=== PATIENT | female | born 1995 | race Caucasian/White ===

== ENCOUNTER 2018-03-11 17:09 | Inpatient (IN) | payer OTHER ==
[2018-03-11] MEDS: miSOPROStol 50 MCG 1/2 TAB (S0191) PO ×2 (01:45→21:37)
[2018-03-11 20:07] LABS: HEMATOCRIT 34.2 % (36.0-47.0); MEAN CORPUSCULAR HEMOGLOBIN 26.3 pg (27.0-33.0); MEAN CORPUSCULAR HGB CONC 32.2 g/dl (32.0-36.5); MEAN CORPUSCULAR VOLUME 81.6 fl (80.0-96.0); PLATELET COUNT, AUTOMATED 233 10^3/uL (150-450); RED BLOOD COUNT 4.19 10^6/uL (4.00-5.40); RED CELL DISTRIBUTION WIDTH 18.5 % (11.5-14.5); WHITE BLOOD COUNT 14.9 10^3/uL (4.0-10.0)
[2018-03-11 20:30] LABS: ALT/SGPT 13 U/L (12-78); AST/SGOT 14 U/L (7-37); BILIRUBIN,TOTAL 0.2 MG/DL (0.2-1.0); CREATININE FOR GFR 0.66 MG/DL (0.55-1.30); GLOMERULAR FILTRATION RATE > 60.0 (>60); LDH LACTATE DEHYDROGENASE 186 U/L (84-246); URIC ACID 3.9 MG/DL (2.6-6.0)
[2018-03-11] MEDS ORDERED: AcetaZOLAMIDE 500 MG ER CAP PO (21:00)
[2018-03-11] MEDS ORDERED: zolPIDEM TARTRATE 5 MG TAB PO (21:00)
[2018-03-11 21:15] LABS: TOTAL PROTEIN,RANDOM URINE 41.8 MG/DL (0.0-12.0)
[2018-03-11 21:15] LABS: CREATININE,RANDOM URINE 64.9 MG/DL
[2018-03-12] MEDS: miSOPROStol 50 MCG 1/2 TAB (S0191) PO ×3 (02:45→10:45)
[2018-03-12] MEDS: ACETAMINOPHEN 500 MG TAB PO (05:39)
[2018-03-12] MEDS: CALCIUM CARBONATE 500 MG CHEW U/D PO (05:45)
[2018-03-12] MEDS: LR 1,000 ML IV ×2 (11:37→19:15)
[2018-03-12] MEDS: OXYTOCIN DRIP 30 UNITS in APPROPRIATE DILUENT 1 EA IV (11:38)
[2018-03-12] MEDS ORDERED: hydrALAZINE INJ 20 MG/ML VIAL As Ordered (14:08)
[2018-03-12] MEDS: hydrALAZINE INJ 20 MG/ML VIAL IV (14:13)
[2018-03-12 14:32] LABS: HEMOGLOBIN 10.9 g/dl (12.0-15.5); MEAN CORPUSCULAR HEMOGLOBIN 26.7 pg (27.0-33.0); MEAN CORPUSCULAR VOLUME 80.9 fl (80.0-96.0); PLATELET COUNT, AUTOMATED 213 10^3/uL (150-450); RED BLOOD COUNT 4.08 10^6/uL (4.00-5.40); RED CELL DISTRIBUTION WIDTH 18.8 % (11.5-14.5); WHITE BLOOD COUNT 15.6 10^3/uL (4.0-10.0)
[2018-03-12 14:54] LABS: ALT/SGPT 12 U/L (12-78); AST/SGOT 9 U/L (7-37); BILIRUBIN,TOTAL 0.2 MG/DL (0.2-1.0); GLOMERULAR FILTRATION RATE > 60.0 (>60); LDH LACTATE DEHYDROGENASE 159 U/L (84-246); URIC ACID 3.8 MG/DL (2.6-6.0)
[2018-03-12] MEDS: PENICILLIN G POTASSIUM IV 5 MU in D5W MINI-BAG PLUS 100 ML IV (18:59)
[2018-03-12] MEDS: PENICILLIN G POTASSIUM IV 2.5 MU in APPROPRIATE DILUENT 1 EA IV (23:30)
[2018-03-13] MEDS: LABETALOL HCL 100 MG/20 ML VIAL IV (02:15)
[2018-03-13] MEDS ORDERED: LABETALOL HCL 100 MG/20 ML VIAL As Ordered (02:16)
[2018-03-13] MEDS: LR 1,000 ML IV ×3 (03:15→19:15)
[2018-03-13] MEDS: PENICILLIN G POTASSIUM IV 2.5 MU in APPROPRIATE DILUENT 1 EA IV ×4 (03:30→15:30)
[2018-03-13] MEDS: BUTORPHANOL 2 MG/ML INJ (J0595) IV (05:15)
[2018-03-13] MEDS: PROMETHAZINE INJ 25 MG/ML VIAL (J2550) IV (05:15)
[2018-03-13] MEDS ORDERED: FENTANYL 2MCG/ML ROPIVACAINE 0.2% IN 0.9% NACL 200ML IVBAG As Ordered (07:21)
[2018-03-13] MEDS: MAG Sulf (L&D) 4 GM/100 ML 4 GM in APPROPRIATE DILUENT 1 EA IV (08:28)
[2018-03-13] MEDS: MAG Sulf (OBGYN) 20GM/500ML 20,000 MG in APPROPRIATE DILUENT 1 EA IV ×2 (08:29→19:10)
[2018-03-13] MEDS: FENTANYL/ROPIVACAINE/NACL BAG 200 ML EPIDURAL (08:29)
[2018-03-13] MEDS ORDERED: ONDANSETRON 4MG/2ML VIAL (J2405) IV ×2 (08:30→16:30)
[2018-03-13] MEDS ORDERED: ePHEDrine SULFATE 25 MG/5 ML(5MG/ML) SYRINGE IV (08:30)
[2018-03-13] MEDS ORDERED: diphenhydrAMINE INJ 50MG/ML VIAL (J1200) IV (08:30)
[2018-03-13] MEDS ORDERED: REFRIGERATOR IV KEYS XX (08:30)
[2018-03-13] MEDS ORDERED: NALOXONE INJ 0.4 MG/1 ML VIAL (J2310) IV (08:30)
[2018-03-13] MEDS ORDERED: EPIDURAL/PCA KEYS XX (08:30)
[2018-03-13] MEDS ORDERED: EPIDURAL COMMENT XX (08:30)
[2018-03-13] MEDS ORDERED: LIDOCAINE 1% MDV INJ 50 ML VIAL As Ordered (15:45)
[2018-03-13] MEDS: LIDOCAINE 1% MDV 20ML VIAL INFIL (16:30)
[2018-03-13] MEDS ORDERED: RHOGAM 300 MCG (1500 IU) INJ (J2790) IM (16:30)
[2018-03-13] MEDS ORDERED: ACETAMINOPHEN 500 MG TAB PO (16:30)
[2018-03-13] MEDS ORDERED: CALCIUM GLUCONATE 1,000 MG in D5W MINI-BAG PLUS 100 ML IV (16:30)
[2018-03-13] MEDS ORDERED: MEASLES,MUMPS,RUBELLA VACCINE INJ (MMR-II) (90707) SC (16:30)
[2018-03-13] MEDS: OXYTOCIN DRIP 30 UNITS in APPROPRIATE DILUENT 1 EA IV (16:55)
[2018-03-13] MEDS: ACETAMINOPHEN 500 MG TAB PO ×2 (19:54→19:56)
[2018-03-13] MEDS: DOCUSATE SODIUM 100 MG CAP PO (21:29)
[2018-03-14] MEDS: MAG Sulf (OBGYN) 20GM/500ML 20,000 MG in APPROPRIATE DILUENT 1 EA IV ×2 (04:28→13:45)
[2018-03-14] MEDS: LR 1,000 ML IV ×2 (04:28→11:15)
[2018-03-14] MEDS: DOCUSATE SODIUM 100 MG CAP PO ×2 (09:53→21:00)
[2018-03-14] MEDS: PRENATAL VITAMINS CHEWABLE TABLET PO (09:53)
[2018-03-14] MEDS ORDERED: LIDOCAINE 1% MDV 20ML VIAL As Ordered (11:24)
[2018-03-14 12:15] LABS: HEMATOCRIT 28.1 % (36.0-47.0); HEMOGLOBIN 9.1 g/dl (12.0-15.5); MEAN CORPUSCULAR HEMOGLOBIN 26.5 pg (27.0-33.0); MEAN CORPUSCULAR HGB CONC 32.4 g/dl (32.0-36.5); MEAN CORPUSCULAR VOLUME 81.7 fl (80.0-96.0); PLATELET COUNT, AUTOMATED 201 10^3/uL (150-450); RED BLOOD COUNT 3.44 10^6/uL (4.00-5.40); RED CELL DISTRIBUTION WIDTH 18.9 % (11.5-14.5)
[2018-03-14 13:02] LABS: MAGNESIUM LEVEL 5.6 MG/DL (1.8-2.4)
[2018-03-14] MEDS: IBUPROFEN 800 MG TAB PO (14:56)
[2018-03-14] MEDS: DIBUCAINE 1% OINTMENT 30GM TOP (17:38)
[2018-03-14] MEDS: ANUSOL HC CREAM 30GM TOP (17:38)
[2018-03-15] MEDS: DOCUSATE SODIUM 100 MG CAP PO (08:01)
[2018-03-15] MEDS: PRENATAL VITAMINS CHEWABLE TABLET PO (08:01)
== END 2018-03-15 12:20 | disposition home or self-care (01) | DRG 775 ==
LOC: M LDI 17:09 → M OBS 03-13 18:58
PROC: 3E0P7GC Introduction of Other Therapeutic Substance into Female Reproductive, Via Natural or Artificial Opening (ICD-10-PCS; 2018-03-11)
PROC: 10E0XZZ Delivery of Products of Conception, External Approach (ICD-10-PCS; principal; 2018-03-13)
PROC: 0KQM0ZZ Repair Perineum Muscle, Open Approach (ICD-10-PCS; 2018-03-13)
DX: O14.14 Severe pre-eclampsia complicating childbirth (principal); Z68.41 Body mass index [BMI] 40.0-44.9, adult; O99.354 Diseases of the nervous system complicating childbirth; O99.214 Obesity complicating childbirth; Z3A.39 39 weeks gestation of pregnancy; E66.9 Obesity, unspecified; O70.1 Second degree perineal laceration during delivery; G93.2 Benign intracranial hypertension; Z37.0 Single live birth

== ENCOUNTER 2018-03-22 12:35 | Emergency (ER) | payer OTHER ==
[2018-03-22] MEDS: ACETAMINOPHEN TAB 650MG DOSE (2X325MG) PO (14:32)
[2018-03-22 14:51] LABS: BASO # 0.1 10^3/uL (0.0-0.2); BASO % 0.5 % (0.0-1.0); EOS # 0.3 10^3/uL (0.0-0.50); EOS % 2.5 % (0.0-3.0); HEMATOCRIT 33.9 % (36.0-47.0); HEMOGLOBIN 10.6 g/dl (12.0-15.5); IMMATURE GRANULOCYTE % 1.2 % (0-3.0); LYMPH # 1.9 10^3/uL (1.5-6.5); LYMPH % 17.1 % (24.0-44.0); MEAN CORPUSCULAR HEMOGLOBIN 26.2 pg (27.0-33.0); MEAN CORPUSCULAR HGB CONC 31.3 g/dl (32.0-36.5); MEAN CORPUSCULAR VOLUME 83.9 fl (80.0-96.0); MONO # 0.9 10^3/uL (0.0-0.8); MONO % 8.6 % (0.0-5.0); NEUTROPHILS # 7.7 10^3/uL (1.8-7.7); NEUTROPHILS % 70.1 % (36.0-66.0); PLATELET COUNT, AUTOMATED 322 10^3/uL (150-450); RED BLOOD COUNT 4.04 10^6/uL (4.00-5.40); RED CELL DISTRIBUTION WIDTH 17.8 % (11.5-14.5)
[2018-03-22 14:59] LABS: ALBUMIN 2.8 GM/DL (3.2-5.2); ALKALINE PHOSPHATASE 128 U/L (45-117); ALT/SGPT 21 U/L (12-78); ANION GAP 11 MEQ/L (8-16); AST/SGOT 32 U/L (7-37); BILIRUBIN,DIRECT < 0.1 MG/DL (0.0-0.2); BILIRUBIN,TOTAL 0.3 MG/DL (0.2-1.0); BLOOD UREA NITROGEN 13 MG/DL (7-18); CALCIUM LEVEL 8.8 MG/DL (8.5-10.1); CARBON DIOXIDE LEVEL 20 MEQ/L (21-32); CHLORIDE LEVEL 110 MEQ/L (98-107); CREATININE FOR GFR 0.79 MG/DL (0.55-1.30); GLOMERULAR FILTRATION RATE > 60.0 (>60); GLUCOSE, FASTING 79 MG/DL (70-100); LDH LACTATE DEHYDROGENASE 362 U/L (84-246); POTASSIUM SERUM 4.6 MEQ/L (3.5-5.1); SODIUM LEVEL 141 MEQ/L (136-145); TOTAL PROTEIN 7.5 GM/DL (6.4-8.2); URIC ACID 5.7 MG/DL (2.6-6.0)
== END 2018-03-22 17:07 | disposition home or self-care (01) ==
LOC: M ED 12:35
DX: R51 Headache (principal); Z82.49 Family history of ischemic heart disease and other diseases of the circulatory system; Z79.899 Other long term (current) drug therapy
CPT/HCPCS: 83615

== ENCOUNTER 2019-11-28 17:34 | Outpatient (CLI) | payer OTHER ==
[~2019-11-28] VITALS: Ht 162.6 cm; Wt 106.2 kg
[~2019-11-28 17:34] MED LIST: ACET50CA PO; COLA100C5 PO; FERR325T3 PO; IBUP-1114 PO; MAPA500T2 PO; NUPE1OIN2 TOP; PRENTAB9 PO; VITA500C24 PO
[2019-11-28 17:53] VITALS: BP 133/79
[2019-11-28] MEDS ORDERED: PRENTAB9 PO (17:58)
--- NOTE | 2019-11-28 19:14 | IPNPDOC ---
Text Note Date of Service The patient was seen on 11/28/19. NOTE patient is a 24 yo ! 40+3 wks gestation presents with concern for regular contractions since this AM. reports not painful. just concern since she was induced at 38wks with last . denies LOF/VB. +FM last checked in clinic 3 days ago to be 3-4cm vitals: normal NAD abd: gravid, soft, nt fht: 140/mod gaby/pos accel/no decel toco: ctx q 7-9mins ce: (per nursing check) a/p patient not in active labor. Discussed with patient return precautions. f/u with regularly scheduled appointment. DO Sandra VS,Charlie, I+O VS, Marinae, I+O Vital Signs Date Time Temp Pulse Resp B/P (MAP) Pulse Ox O2 Delivery O2 Flow Rate FiO2 11/28/19 17:53 99.0 89 18 133/79 (97) BERNICE ARREDONDO DO November 28, 2019 19:14
[2019-11-29] MEDS ORDERED: ACET-683 PO (08:28)
[2019-11-29] MEDS ORDERED: TUMS1000 PO (08:29)
== END 2019-11-28 19:10 | disposition home or self-care (01) ==
LOC: M LDO 17:34
PROVIDERS: ATTEND Obstetrics & Gynecology
DX: O47.1 False labor at or after 37 completed weeks of gestation (principal); Z3A.40 40 weeks gestation of pregnancy
CPT/HCPCS: 59025; G0378; G0463

== ENCOUNTER 2019-11-29 08:06 | Inpatient (IN) | payer OTHER ==
[~2019-11-29] VITALS: Ht 162.6 cm; Wt 106.9 kg
[2019-11-29] VITALS (30 sets, daily range): BP systolic 84–143; BP diastolic 49–90
[2019-11-29] MEDS ORDERED: ACET-683 PO (08:28)
[2019-11-29] MEDS ORDERED: TUMS1000 PO (08:29)
[2019-11-29] MEDS ORDERED: LACTATED RINGER'S 1000 ML IV STA (09:57)
[2019-11-29] MEDS ORDERED: PENICILLIN G POTASSIUM IV 5 MU in D5W MINI-BAG PLUS 100 ML IV STA (09:57)
--- NOTE | 2019-11-29 10:33 | HPEPDOC ---
Obstetrical History & Physical General Date of Admission November 29, 2019 at 09:19 History of Present Illness Aida is 24yo at 40+4wks (EDC [id number], dating by LMP/1TUS). She pres ents to LND for labor check and noted to be 5/90/-2 by RN. She endorses excellent movement, denies LOF/VB. She reports her contractions starting yesterday and continues to become longer, stronger and closer together. complicated by psuedo-tumor cerebri (last evaluated by neuro approximately 2 months ago per pt's report and states tumor is in remission; she denies any difficulties with her previous delivery). Other complication: obesity and excessive weight gain. GBS Positive, Blood Type A Positive OB Hx: 1: 02/2018 at 38 week, complicated by Pre-Eclampsia Chief Complaint: Contractions, term Information Provided By: Patient Age: 24 : 2 Term: 1 Pre-term: 0 Abortions: 0 Livin Care Care: Good Care Number of Visits: 10 Dating Final EDC: November 25, 2019 Final EDC for Daily Update: November 25, 2019 Final EDC by: LMP LMP: Feb 18, 2019 Antepartum Course Height (inches): 64 Pre- weight (lbs.): 190 Admission Weight (lbs.): 230 Change in Weight (lbs.): 40 Past Medical History Past Obstetrical History : Past Obstetrical History: Multigravida DATA ARCHITECT History: No pertinent history Past Medical History Medical History Pseudo-Tumor Cerebri Surgical History: Denies/None Family History Significant Family History: No pertinent family hx Social History Marital Status: Family situation: Spouse/partner home Psychosocial History: No pertinent psych hx * Smoker: non-smoker Alcohol: Denies Drugs: denies Imunizations Tdap status: current Influenza Status: current Allergies Coded Allergies: No Known Allergies (Unverified , 03/11/18) Medications Scheduled No.137/Iron/Folic Acd ( Vitamin Tablet) 1 Each Tablet, 1 TAB PO DAILY Scheduled PRN Acetaminophen (Acetaminophen) 500 Mg Tablet, 2 TABS PO Q6HP PRN for DISCOMFORT Calcium Carbonate (Tums Ultra) 400 Mg Tab.chew, 1 TAB PO Q6HP PRN for INDIGESTI ON Physical Examination Physical Examination GENERAL: Alert and oriented times three. ABDOMEN: Gravid and non-tender to touch. FETUS: Is vertex by sterile vaginal examination. HEART RATE: Regular rate. LUNGS: Observed normal, nonlabored breathing. EXTREMITIES: Bilateral pedal edema. Vital Signs/I&O O: VSS, normotensive, afebrile FHR 150s, moderate variability, + accels, no decels CTX by TOCO: q2-3.5, moderate by palpation VE: 5/90/-2 by RN Vital Signs Date Time Temp Pulse Resp B/P (MAP) Pulse Ox O2 Delivery O2 Flow Rate FiO2 11/29/19 08:19 98.2 76 20 133/84 (100) 97 Room Air Laboratory Data 24H LABS Laboratory Tests 2 11/29/19 09:23: Serology Scanned Report Hepatitis B Testing 11/29/19 09:48: CBC/BMP Anatomy Ultrasound Ultrasound Date: Aug 06, 2019 Placenta Location: Anterior Normal Anatomy: Yes Placenta Previa: No Assessment/Plan Assessment A: Aida is a24yo at 40+4wks being admitted for early active labor, Category I FHT, GBS Positive. Plan P: Admit to LND, consent for labor, possible augmentation, and delivery PIV start, admission labs drawn Epidural now PCN for GBS prophylaxis PO and IV hydration CEFM x2 Expectant management Close monitoring of maternal/ status Anticipate Consult with OB as indicated RYAN ARORA CNM November 29, 2019 10:33
[2019-11-29 10:40] LABS: BASO # 0.1 10^3/uL (0.0-0.2); BASO % 0.4 % (0.0-1.0); EOS # 0.1 10^3/uL (0.0-0.5); EOS % 0.8 % (0.0-3.0); HEMATOCRIT 36.5 % (36.0-47.0); HEMOGLOBIN 11.8 g/dl (12.0-15.5); LYMPH # 2.2 10^3/uL (1.5-5.0); LYMPH % 13.6 % (24.0-44.0); MEAN CORPUSCULAR HEMOGLOBIN 26.3 pg (27.0-33.0); MEAN CORPUSCULAR HGB CONC 32.3 g/dl (32.0-36.5); MEAN CORPUSCULAR VOLUME 81.5 fl (80.0-96.0); MONO # 1.3 10^3/uL (0.0-0.8); NEUTROPHILS % 75.6 % (36.0-66.0); PLATELET COUNT, AUTOMATED 218 10^3/uL (150-450); RED BLOOD COUNT 4.48 10^6/uL (4.00-5.40); WHITE BLOOD COUNT 15.9 10^3/uL (4.0-10.0)
[2019-11-29] MEDS ORDERED: FENTANYL 2MCG/ML ROPIVACAINE 0.2% IN 0.9% NACL 100ML IVBAG As Ordered ONE (11:10)
[2019-11-29] MEDS: LR 1,000 ML IV SCH ×2 (11:25→14:45)
[2019-11-29] MEDS: ePHEDrine SULFATE 25 MG/5 ML(5MG/ML) SYRINGE IV PRN ×3 (12:13→12:19)
[2019-11-29] MEDS ORDERED: EPIDURAL COMMENT XX SCH (12:15)
[2019-11-29] MEDS ORDERED: REFRIGERATOR IV KEYS XX PRN (12:15)
[2019-11-29] MEDS ORDERED: NALOXONE INJ 0.4MG/1ML VIAL (J2310 PER 1MG) IV PRN (12:15)
[2019-11-29] MEDS ORDERED: EPIDURAL/PCA KEYS XX PRN (12:15)
[2019-11-29] MEDS ORDERED: FENTANYL/ROPIVACAINE/NACL BAG 100 ML EPIDURAL SCH (12:15)
[2019-11-29] MEDS ORDERED: diphenhydrAMINE 50MG/ML VIAL (J1200) IV PRN (12:15)
[2019-11-29] MEDS ORDERED: LACTATED RINGER'S 1000 ML IV PRN (12:15)
[2019-11-29] MEDS ORDERED: ONDANSETRON 4MG/2ML VIAL IV PRN (12:15)
[2019-11-29] MEDS ORDERED: PENICILLIN G POTASSIUM IV 2.5 MU in IV 1 EA IV SCH (14:00)
[2019-11-29] MEDS: PENICILLIN G POTASSIUM IV 2.5 MU in IV 1 EA IV SCH ×2 (14:53→18:45)
--- NOTE | 2019-11-29 17:29 | IPNPDOC ---
Obstetrical Progress Note Date of Service November 29, 2019 Subjective In room for labor assessment. Pt consents to cervical exam. Aida is a 24yo at 40+4wks admitted this morning for labor. She has received her epidural and is now very comfortable; she denies any concerns and does not feel pain or pressure. She has also received two doses of penicillin. Objective O: VSS, afebrile, normotensive SROM at 1656, light meconium VE: 9/C/-1 FHR 150s, moderate variability, prolonged accels noted; 1 minute deceleration noted at 1651, not associated with a contraction CTX: 1-2.5 Vital Signs Date Time Temp Pulse Resp B/P (MAP) Pulse Ox O2 Delivery O2 Flow Rate FiO2 11/29/19 16:10 98.6 11/29/19 16:04 100 20 106/56 (73) 11/29/19 12:28 98 Room Air Assessment Heart Rate Tracing: Category I Sterile Vaginal Examination Postion/Presentation: Cephalic presentation Assessment and Plan Status: Reassuring Group B Streptococcus: Positive Anticipate: Vaginal Delivery Additional Comments A: 24yo at 40+4wks, active labor, Category I FHT P: Expectant management CEFM x2 Close maternal/ monitoring Consult with OB as indicated Anticipate RYAN ARORA CNM November 29, 2019 17:29
[2019-11-29] MEDS ORDERED: OXYTOCIN 30 UNITS IN 0.9% NaCl 500ML IV BAG (J2590) As Ordered ONE (18:03)
[2019-11-29 18:39] LABS: CORD GAS ABE A -9.6; CORD GAS HCO3 A 18.2 MEQ/L; CORD GAS O2 SAT A 73.5 %; CORD GAS PCO2 A 46.9 mmHg; CORD GAS PH A 7.207 UNITS; CORD GAS PO2 A 40.8 mmHg; CORD GAS SBC A 16.4 MEQ/L; CORD GAS TCO2 A 19.6 MEQ/L
[2019-11-29 18:40] LABS: VENOUS HCO3 20.3 MEQ/L (23.0-27.0); VENOUS O2 SATURATION 62.6 % (60.0-80.0); VENOUS PARTIAL PRESSURE CO2 38.7 mmHg (38.0-50.0); VENOUS PARTIAL PRESSURE O2 28.9 mmHg (30.0-50.0); VENOUS PH 7.338 UNITS (7.330-7.430); VENOUS STANDARD HCO3 19.6 MEQ/L; VENOUS TOTAL CO2 21.5 MEQ/L (24.0-28.0)
[2019-11-29] MEDS ORDERED: OXYTOCIN DRIP 30 UNITS in IV 1 EA IV SCH (18:51)
[2019-11-29] MEDS ORDERED: IBUPROFEN 800 MG TAB PO PRN (19:00)
[2019-11-29] MEDS ORDERED: ACETAMINOPHEN 500 MG TAB PO PRN (19:00)
[2019-11-29] MEDS ORDERED: ACETAMINOPHEN TAB 650MG DOSE (2X325MG) PO PRN (19:00)
[2019-11-29] MEDS ORDERED: DIBUCAINE 1% OINTMENT 30GM TOP PRN (19:00)
--- NOTE | 2019-11-29 19:13 | DNPDOC ---
[facility] Delivery Note Delivery Note DATE OF DELIVERY: November 29, 2019 at 6:15 PM PREDELIVERY DIAGNOSIS: 40+4 weeks gestation, meconium stained fluid, tachycardia prior to delivery (no maternal temp) POST DELIVERY DIAGNOSIS: Delivered. PROCEDURE: CRANE RIGGER: ANNALISA Arora ANESTHESIA: Epidural ESTIMATED BLOOD LOSS: 150mL. FINDINGS: 8 pound 0 ounce (3630g) Male infant, Score 7/9. DELIVERY SUMMARY: Aida is a 24yo at 40+4 weeks gestation that was admitted in labor and spontaneously progressed to C/C/0 with continuous rectal pressure. She SROMd at 1656 with light meconium. Fetus noted to have tachycardia (no maternal temp) and patient received LR bolus. D/t patient having slight urge to push, we made the decision to start pushing and pt effectively pushed to deliver viable male over a protected perineum. Thick meconium was noted with delivery of corpus and infant body was noted to be warm to touch. head delivered RAINA and restituted to ROT. Left anterior shoulder delivered with ease, followed by right posterior shoulder, then remainder of body to maternal abdomen where he was bulb suctioned by waiting nurse, dried and stimulated with strong cry. Cord clamped x2 and cut by FOB. Cord gases collected and were WNL. Placenta delivered spontaneously and appeared intact, meconium stained; sent to pathology for review and r/o chorioamnionitis. Upon inspection of vagina, perineum, and cervix, a shallow 2nd degree midline perineal laceration noted and repaired in usual fashion with 3-0 vicryl; hemostasis achieved. Family bonding well; anticipate uncomplicated PP course. RYAN ARORA CNM November 29, 2019 19:13
[2019-11-30] MEDS: LR 1,000 ML IV SCH (02:30)
[2019-11-30] MEDS: IBUPROFEN 600 MG TAB PO PRN ×3 (03:04→20:28)
[2019-11-30 06:12] VITALS: BP 111/59
--- NOTE | 2019-11-30 08:32 | IPNPDOC ---
Progress Note Date of Service: November 30, 2019 Day#: 1 Progress Note SUBJECT: Aida is a 24yo G2 now P2002 s/p at 40+4 weeks gestation on [id number] at 1815 of male infant weighing 3630g. She is doing well, ambulating, voiding spontaneously without issue and tolerating regular diet. She has chosen to formula feed. Infant is currently in the NICU following delivery that was complicated by tachycardia and thick meconium fluid. OBJECTIVE: VITAL SIGNS: Within normal limits, afebrile. Alert and oriented times three. Nonlabored breathing. Heart rate: Regular rate. Abdomen: Fundus firm at U. Minimal lochia. ASSESSMENT: PP Day #1, normal involution, stable and progressing well. in NICU and pt able to visit. She has chosen to formula feed at this time. PLAN: 1. Routine PP Care 2. Tylenol for pain. 3. Encourage frequent ambulation. 4. Plan to discharge home on PP Day #2 or to boarder status. VS, I&O, [facility], [facility] Vital Signs/I&O Vital Signs Date Time Temp Pulse Resp B/P (MAP) Pulse Ox O2 Delivery O2 Flow Rate FiO2 11/30/19 06:12 97.5 55 16 111/59 (76) 11/29/19 21:01 97 Room Air I&O- Last 24 Hours up to 6 AM 11/30/19 06:00 Intake Total 3615 ml Output Total 1905 ml Balance 1710 ml Laboratory Data 24H LABS Laboratory Tests 2 11/29/19 09:23: Serology Scanned Report Hepatitis B Testing 11/29/19 09:48: Immature Granulocyte % (Auto) 1.6, Neutrophils (%) (Auto) 75.6H, Lymphocytes (%) (Auto) 13.6L, Monocytes (%) (Auto) 8.0H, Eosinophils (%) (Auto) 0.8, Basophils (%) (Auto) 0.4, Neutrophils # (Auto) 12.0H, Lymphocytes # (Auto) 2.2, Monocytes # (Auto) 1.3H, Eosinophils # (Auto) 0.1, Basophils # (Auto) 0.1, Nucleated Red Blood Cells % (auto) 0.0 11/29/19 18:24: Blood Gas Bicarbonate Standard 19.6, Venous Blood pH 7.338, Venous Blood Partial Pressure CO2 38.7, Venous Blood Partial Pressure O2 28.9L, Venous Blood Total Carbon Dioxide 21.5L, Venous Blood HCO3 20.3L, Venous Blood Oxygen Saturation 62.6, Venous Blood Base Excess -5.0L 11/29/19 18:27: Cord Arterial Blood pH 7.207, Cord Arterial Blood PCO2 46.9, Cord Arterial Blood PO2 40.8, Cord Arterial Blood HCO3 18.2, Cord Arterial Blood Total CO2 19.6, Cord Arterial Blood Base Excess -9.6, Cord Arterial Base Excess (Standard 16.4, Cord Arterial Bld Oxygen Saturation 73.5 CBC/BMP Laboratory Tests 11/29/19 09:48 RYAN ARORA CNM November 30, 2019 08:32
[2019-11-30 08:43] LABS: HEMATOCRIT 30.5 % (36.0-47.0); MEAN CORPUSCULAR HEMOGLOBIN 26.7 pg (27.0-33.0); MEAN CORPUSCULAR HGB CONC 32.1 g/dl (32.0-36.5); MEAN CORPUSCULAR VOLUME 83.1 fl (80.0-96.0); PLATELET COUNT, AUTOMATED 167 10^3/uL (150-450); RED BLOOD COUNT 3.67 10^6/uL (4.00-5.40); WHITE BLOOD COUNT 14.1 10^3/uL (4.0-10.0)
[2019-11-30 08:44] LABS: HEMOGLOBIN 9.8 g/dl (12.0-15.5)
[2019-11-30] MEDS: PRENATAL VITAMINS CHEWABLE TABLET PO SCH (08:54)
[2019-11-30 18:00] VITALS: BP 125/67
[2019-11-30] MEDS: DOCUSATE SODIUM 100 MG CAP PO PRN (20:28)
[2019-12-01 05:54] VITALS: BP 130/72
[2019-12-01] MEDS: IBUPROFEN 600 MG TAB PO PRN ×2 (08:01→20:24)
[2019-12-01] MEDS: PRENATAL VITAMINS CHEWABLE TABLET PO SCH (08:01)
--- NOTE | 2019-12-01 09:48 | IPNPDOC ---
Progress Note Date of Service: December 01, 2019 Day#: 2 Progress Note PPD 2 SUBJECT: Aida is a 24yo [id number] s/p uncomplicated at 40w4d on 28 November at 18:15 after presenting in active labor, doing well day # 2. She has been ambulating, voiding spontaneously without issue and tolerating regular diet. Breast feeding without issue. Baby is in NICU currently and mom visits frequently. Minimal discomfort. Reports lochia is like a normal period. No lightheadedness/dizziness, f/c/n/v/CP/SOB. OBJECTIVE: VITAL SIGNS: Within normal limits, afebrile. Alert and oriented times three. Abdomen: Fundus firm at U-2. Soft, NTTP. Extremities: trace edema of BLE, no pain with palpation of calves ASSESSMENT: Aida is a 24yo [id number] s/p uncomplicated at 40w4d on 28 November at 18:15 after presenting in active labor, doing well day # 2. Vitals within normal limits, afebrile, hemodynamically stable with no evidence of infection. PLAN: 1. Routine care 2. Tylenol and Motrin for pain. 3. Encourage breast feeding and ambulation. 4. Regular diet 5. Possible discharge tomorrow if meeting all milestones Dr. Rafaela Arroyo MD VS, I&O, 24H, Fishbone Vital Signs/I&O Vital Signs Date Time Temp Pulse Resp B/P (MAP) Pulse Ox O2 Delivery O2 Flow Rate FiO2 12/01/19 05:54 98.1 73 14 130/72 (91) 11/29/19 21:01 97 Room Air Rafaela Arroyo MD December 01, 2019 09:48
[2019-12-01 18:04] VITALS: BP 130/70
[2019-12-01] MEDS: DOCUSATE SODIUM 100 MG CAP PO PRN (20:24)
[2019-12-02 06:00] VITALS: BP 137/73
[2019-12-02] MEDS: PRENATAL VITAMINS CHEWABLE TABLET PO SCH ×2 (08:06→08:46)
[2019-12-02] MEDS: IBUPROFEN 600 MG TAB PO PRN (08:07)
--- NOTE | 2019-12-02 10:46 | IPNPDOC ---
Progress Note Date of Service: December 02, 2019 Day#: 3 Progress Note SUBJECT: Aida is a 24yo G2 now P2002 s/p at 40+4 weeks gestation on [id number] at 1815 of male infant weighing 3630g. She is doing well, ambulating, voiding spontaneously without issue and tolerating regular diet. She has chosen to formula feed. She desires to discuss control options today. We reviewed all safe options, their risks/benefits, and she desires to have Depo today prior to discharge. Infant is currently in the NICU. OBJECTIVE: VITAL SIGNS: Within normal limits, afebrile. Alert and oriented times three. Nonlabored breathing. Heart rate: Regular rate. Abdomen: Fundus firm at U-2 Minimal lochia. ASSESSMENT: PP Day #3, normal involution, stable and progressing well. in NICU and pt able to visit. She has chosen to formula feed at this time. PLAN: 1. Routine PP Care 2. Discharge home today. 3. Tylenol and motrin PRN for pain. 4. Encourage frequent ambulation. 5. Routine discharge teaching. 6. Depo prior to discharge. VS, I&O, 24H, Fishbone Vital Signs/I&O Vital Signs Date Time Temp Pulse Resp B/P (MAP) Pulse Ox O2 Delivery O2 Flow Rate FiO2 12/02/19 06:00 98.1 68 17 137/73 (94) 97 Room Air RYAN ARORA CNM December 02, 2019 10:46
[2019-12-02] MEDS ORDERED: IBUP-1022 PO (10:49)
[2019-12-02] MEDS ORDERED: DOCU100C16 PO (10:49)
--- NOTE | 2019-12-02 10:50 | OBDS ---
[facility] Obstetrical Discharge Sum. Obstetrical Discharge Summary Date: December 02, 2019 Time: 18:15 : 2 Term: 2 Pre-term: 0 Abortions: 0 Livin VDRL: Non-Reactive Rh: Positive Rubella: Immune Delivery See delivery note. Infant Sex: Male Anesthesia: Other (Epidural) A/P, Post Course List any complications Admission diagnosis: Labor Discharge diagnosis: Condition at Discharge: Stable Discharge Instructions: Discharge home with routine PP precautions and return precautions. Activity: Increase as tolerated Diet: Regular Medications: Tylenol, motrin, dibucaine, colace PRN Follow-up: Call OB clinic to follow up for routine PP appointment at 6 weeks (or prior to move) RYAN ARORA CNM December 02, 2019 10:49
[2019-12-02] MEDS ORDERED: medroxyPROGESTERone ACET IM SUSP 150 MG/ML VIAL (J1050) IM ONE (11:30)
--- NOTE | 2019-12-04 04:41 | IPN ---
DATE: 12/01/2019 This patient requested circumcision of her male after discussing risks and benefits of circumcision, the medical and nonmedical indications, the penile block, and aftercare. Expressed understanding of penile block, aftercare. Signed the consent form. We await the baby coming out of the intensive care unit (NICU), and we will perform the circumcision as appropriate interval.
== END 2019-12-02 11:49 | disposition home or self-care (01) | DRG 807 ==
LOC: M LDO 08:06 → M LDI 09:19 → M OBS 20:46
PROVIDERS: ADMIT Registered Nurse Maternal Newborn; ATTEND Registered Nurse Maternal Newborn
PROC: 10E0XZZ Delivery of Products of Conception, External Approach (ICD-10-PCS; principal; 2019-11-29)
PROC: 0HQ9XZZ Repair Perineum Skin, External Approach (ICD-10-PCS; 2019-11-29)
DX: O48.0 Post-term pregnancy (principal); Z37.0 Single live birth; Z3A.40 40 weeks gestation of pregnancy; O99.824 Streptococcus B carrier state complicating childbirth; O99.214 Obesity complicating childbirth; E66.9 Obesity, unspecified; O76 Abnormality in fetal heart rate and rhythm complicating labor and delivery; O77.0 Labor and delivery complicated by meconium in amniotic fluid; O70.1 Second degree perineal laceration during delivery